=== PATIENT | female | born 1965 | race Caucasian/White ===

== ENCOUNTER 2016-05-21 14:26 | Day surgery (SDC) | payer OTHER ==
[~2016-05-21] VITALS: Ht 167.6 cm; Wt 134.8 kg
[~2016-05-21 14:26] MED LIST: ABILIFY30 MG PO; AMBIEN10 MG PO; AMBIEN5 MG PO; BACLOFEN10 MG PO; BENZTROPINE MESY2 MG PO; CEFTIN500 MG PO; CELEBREX200 MG PO; CLONAZEPAM1 MG; CYMBALTA30 MG; CYMBALTA30 MG PO; CYMBALTA60 MG PO; DICYCLOMINE HCL20 MG PO; DOCUSATE SODIU100 MG PO; DULOXETINE HCL60 MG PO; ELAVIL25 MG PO; ELIMITE 5% CREA60 GM TP; ENDOCET 5-3251 EACH; ENDOCET 5-3251 EACH PO; EVISTA60 MG PO; EXCEDRIN EXTRA1 EACH PO; FERROUS SULFAT325 MG PO; FOLIC ACID1 MG PO; FUROSEMIDE40 MG; GABAPENTIN400 MG; GABAPENTIN400 MG PO; IBUPROFEN800 MG PO; IRON325 MG PO; KLONOPIN0.5 M1 PO; KLONOPIN1 MG PO; LASIX40 MG PO; LATUDA120 MG PO; LATUDA60 MG PO; LATUDA80 MG PO; LIDODERM 5% P1 PATCH; LISINOPRIL10 MG PO; LODINE400 MG; LODINE400 MG PO; LOPRESSOR25 MG; LOPRESSOR25 MG PO; LOPRESSOR50 MG PO; LOVENOX40 MG/0.4 SC; MELATONIN3 MG PO; MELATONIN5 M1 PO; MELOXICAM15 MG; METOPROLOL TART25 MG PO; METOPROLOL TART50 MG PO; MINIPRESS1 MG PO; MOBIC15 MG PO; MOTRIN800 MG PO; NEURONTIN100 MG PO; NEURONTIN300 MG PO; NEURONTIN400 MG PO; NORCO 5/3251 TABLET PO; OXYCODONE HCL10 MG PO; OXYCODONE HCL5 MG PO; PERCOCET 10/1 TABLET PO; PERCOCET 5/31 TABLET PO; PERPHEN-AMITRI1 EAC1 PO; PERPHEN-AMITRI1 EAC3 PO; PREDNISONE10 MG PO; PREDNISONE20 MG PO; PRINIVIL10 MG PO; PROVENTIL HFA6.7 GM IH; RISPERDAL1 MG PO; SENNA-TIME S T1 EACH PO; TERCONAZOLE 0.8% CRE; TIZANIDINE HCL4 MG; TRAMADOL HCL50 MG; TRAMADOL HCL50 MG PO; ULTRAM50 MG PO; VITAMIN B-12250 MCG PO; VITAMIN B-12500 MC2 PO; VITAMIN B12-FO1 EACH PO; ZANAFLEX4 M1 PO; ZOFRAN4 MG PO; ZOLPIDEM TARTRA10 MG
== END 2016-05-21 16:53 | disposition home or self-care (01) ==
LOC: PAIN 14:26 → SDC 15:00 → PAIN 16:53
DX: M47.816 Spondylosis without myelopathy or radiculopathy, lumbar region (principal); M54.5 Low back pain; F41.9 Anxiety disorder, unspecified; G89.4 Chronic pain syndrome; F10.21 Alcohol dependence, in remission; I10 Essential (primary) hypertension; F31.9 Bipolar disorder, unspecified; E66.01 Morbid (severe) obesity due to excess calories; Z68.42 Body mass index [BMI] 45.0-49.9, adult; F20.9 Schizophrenia, unspecified; Z96.653 Presence of artificial knee joint, bilateral; Z84.89 Family history of other specified conditions; Z80.3 Family history of malignant neoplasm of breast; Z80.41 Family history of malignant neoplasm of ovary; Z82.0 Family history of epilepsy and other diseases of the nervous system; Z83.49 Family history of other endocrine, nutritional and metabolic diseases; Z82.49 Family history of ischemic heart disease and other diseases of the circulatory system; Z83.3 Family history of diabetes mellitus
CPT/HCPCS: J1030; J3010; S0020

== ENCOUNTER 2016-07-07 21:06 | Emergency (ER) | payer OTHER ==
[~2016-07-07] VITALS: Ht 167.6 cm; Wt 124.6 kg
[2016-07-07 23:09] LABS: INFLUENZA A VIRAL ANTIGEN NEGATIVE; INFLUENZA B VIRAL ANTIGEN NEGATIVE
[2016-07-07] MEDS ORDERED: MEDROL DOSEPAK4 MG PO (23:16)
[2016-07-07] MEDS ORDERED: VENTOLIN HFA18 GM IH (23:16)
[2016-07-07 23:35] VITALS: BP 128/71
== END 2016-07-07 23:37 | disposition home or self-care (01) ==
LOC: EME 21:06
PROVIDERS: Physician Assistant
DX: J40 Bronchitis, not specified as acute or chronic (principal); J98.01 Acute bronchospasm
CPT/HCPCS: 71020; 87502; 94640; 99281; 99284; J7512

== ENCOUNTER 2016-07-17 07:31 | Day surgery (SDC) | payer OTHER ==
[~2016-07-17] VITALS: Ht 168.9 cm; Wt 123.8 kg
[~2016-07-17 07:31] MED LIST changes: +MEDROL DOSEPAK4 MG PO; +VENTOLIN HFA18 GM IH
== END 2016-07-17 10:10 | disposition home or self-care (01) ==
LOC: PAIN 07:31 → SDC 08:45 → CATH 09:15 → PAIN 10:10
PROC: 015B3ZZ Destruction of Lumbar Nerve, Percutaneous Approach (ICD-10-PCS; principal; 2016-07-17)
DX: M47.816 Spondylosis without myelopathy or radiculopathy, lumbar region (principal); F41.9 Anxiety disorder, unspecified; G89.4 Chronic pain syndrome; M51.36 Other intervertebral disc degeneration, lumbar region; M47.892 Other spondylosis, cervical region; F31.9 Bipolar disorder, unspecified; F20.9 Schizophrenia, unspecified; Z96.653 Presence of artificial knee joint, bilateral; F10.21 Alcohol dependence, in remission; I10 Essential (primary) hypertension; E66.01 Morbid (severe) obesity due to excess calories; Z68.41 Body mass index [BMI] 40.0-44.9, adult; R73.03 Prediabetes; Z88.6 Allergy status to analgesic agent
CPT/HCPCS: J1030; J2250; J3010; S0020

== ENCOUNTER 2016-10-15 07:15 | Day surgery (SDC) | payer OTHER ==
[~2016-10-15] VITALS: Ht 168.9 cm; Wt 124.2 kg
[2016-10-15] MEDS ORDERED: VITAMIN D2000 UNI1 PO (07:31)
== END 2016-10-15 09:18 | disposition home or self-care (01) ==
LOC: PAIN 07:15 → SDC 08:00 → PAIN 08:00
DX: M46.1 Sacroiliitis, not elsewhere classified (principal); G89.4 Chronic pain syndrome; M53.3 Sacrococcygeal disorders, not elsewhere classified; M47.816 Spondylosis without myelopathy or radiculopathy, lumbar region; M51.36 Other intervertebral disc degeneration, lumbar region; M47.892 Other spondylosis, cervical region; M54.9 Dorsalgia, unspecified; F10.21 Alcohol dependence, in remission; I10 Essential (primary) hypertension; F31.9 Bipolar disorder, unspecified; Z79.891 Long term (current) use of opiate analgesic
CPT/HCPCS: J1030; J2250; J3010; S0020

== ENCOUNTER 2017-05-11 07:15 | Day surgery (SDC) | payer OTHER ==
[~2017-05-11] VITALS: Ht 168.9 cm; Wt 118.4 kg
[~2017-05-11 07:15] MED LIST changes: +VITAMIN D2000 UNI1 PO
== END 2017-05-11 08:50 | disposition home or self-care (01) ==
LOC: PAIN 07:15 → SDC 08:00 → PAIN 08:50
PROC: 3E0T3TZ Introduction of Destructive Agent into Peripheral Nerves and Plexi, Percutaneous Approach (ICD-10-PCS; principal; 2017-05-11)
PROC: BR161ZZ Fluoroscopy of Lumbar Facet Joint(s) using Low Osmolar Contrast (ICD-10-PCS; principal; 2017-05-11)
DX: M47.816 Spondylosis without myelopathy or radiculopathy, lumbar region (principal); M54.5 Low back pain; G89.29 Other chronic pain; M48.061 Spinal stenosis, lumbar region without neurogenic claudication; M51.36 Other intervertebral disc degeneration, lumbar region; I10 Essential (primary) hypertension; J45.909 Unspecified asthma, uncomplicated; I25.10 Atherosclerotic heart disease of native coronary artery without angina pectoris; E66.01 Morbid (severe) obesity due to excess calories; Z68.41 Body mass index [BMI] 40.0-44.9, adult; E78.00 Pure hypercholesterolemia, unspecified; R73.03 Prediabetes; F10.21 Alcohol dependence, in remission; Z79.891 Long term (current) use of opiate analgesic
CPT/HCPCS: J1030; J2250; J3010; S0020

== ENCOUNTER 2017-05-17 08:40 | Day surgery (SDC) | payer OTHER ==
[~2017-05-17] VITALS: Ht 167.6 cm; Wt 120.2 kg
[2017-05-17] MEDS ORDERED: KLONOPIN0.5 M1 PO (10:37)
== END 2017-05-17 11:38 | disposition home or self-care (01) ==
LOC: PAIN 08:40 → SDC 10:00 → PAIN 11:38
DX: M47.816 Spondylosis without myelopathy or radiculopathy, lumbar region (principal); M54.5 Low back pain; G89.29 Other chronic pain; M51.36 Other intervertebral disc degeneration, lumbar region; I10 Essential (primary) hypertension; E78.00 Pure hypercholesterolemia, unspecified; R73.03 Prediabetes; F10.21 Alcohol dependence, in remission; I25.10 Atherosclerotic heart disease of native coronary artery without angina pectoris; E66.01 Morbid (severe) obesity due to excess calories; Z68.41 Body mass index [BMI] 40.0-44.9, adult; Z79.891 Long term (current) use of opiate analgesic
CPT/HCPCS: 93005; J1030; J2250; J3010; S0020

== ENCOUNTER 2017-08-02 12:54 | Day surgery (SDC) | payer OTHER ==
[~2017-08-02] VITALS: Ht 168.9 cm; Wt 117.9 kg
== END 2017-08-02 15:25 | disposition home or self-care (01) ==
LOC: PAIN 12:54 → SDC 13:45 → PAIN 13:45
DX: M46.1 Sacroiliitis, not elsewhere classified (principal); M53.3 Sacrococcygeal disorders, not elsewhere classified; G89.4 Chronic pain syndrome; M47.816 Spondylosis without myelopathy or radiculopathy, lumbar region; I10 Essential (primary) hypertension; F31.9 Bipolar disorder, unspecified; F20.9 Schizophrenia, unspecified; Z96.653 Presence of artificial knee joint, bilateral; F10.21 Alcohol dependence, in remission; I25.10 Atherosclerotic heart disease of native coronary artery without angina pectoris
CPT/HCPCS: J1030; J2250; S0020

== ENCOUNTER 2017-10-14 07:13 | Day surgery (SDC) | payer OTHER ==
[~2017-10-14] VITALS: Ht 168.9 cm; Wt 122.5 kg
[~2017-10-14 07:13] MED LIST changes: +COGENTIN0.5 MG PO; +PLAVIX75 MG PO; +PRAVACHOL10 MG PO
== END 2017-10-14 08:55 | disposition home or self-care (01) ==
LOC: PAIN 07:13
DX: M47.812 Spondylosis without myelopathy or radiculopathy, cervical region (principal); M47.816 Spondylosis without myelopathy or radiculopathy, lumbar region; M48.061 Spinal stenosis, lumbar region without neurogenic claudication; F10.21 Alcohol dependence, in remission; I10 Essential (primary) hypertension; I25.10 Atherosclerotic heart disease of native coronary artery without angina pectoris; E78.00 Pure hypercholesterolemia, unspecified; J45.909 Unspecified asthma, uncomplicated; E66.01 Morbid (severe) obesity due to excess calories; Z68.41 Body mass index [BMI] 40.0-44.9, adult; Z79.02 Long term (current) use of antithrombotics/antiplatelets
CPT/HCPCS: J1030; J2250; S0020

== ENCOUNTER 2017-10-21 06:47 | Day surgery (SDC) | payer OTHER ==
[~2017-10-21] VITALS: Ht 167.6 cm; Wt 122.0 kg
== END 2017-10-21 08:57 | disposition home or self-care (01) ==
LOC: PAIN 06:47 → SDC 08:00 → PAIN 08:00
DX: M47.812 Spondylosis without myelopathy or radiculopathy, cervical region (principal); G89.4 Chronic pain syndrome; M47.816 Spondylosis without myelopathy or radiculopathy, lumbar region; M99.83 Other biomechanical lesions of lumbar region; F31.9 Bipolar disorder, unspecified; F20.9 Schizophrenia, unspecified; Z96.651 Presence of right artificial knee joint
CPT/HCPCS: J1030; J2250; S0020

== ENCOUNTER 2017-11-15 07:16 | Day surgery (SDC) | payer OTHER ==
[~2017-11-15] VITALS: Ht 167.6 cm; Wt 121.6 kg
== END 2017-11-15 09:14 | disposition home or self-care (01) ==
LOC: PAIN 07:16
PROC: 3E0U33Z Introduction of Anti-inflammatory into Joints, Percutaneous Approach (ICD-10-PCS; principal; 2017-11-15)
PROC: 3E0U3BZ Introduction of Anesthetic Agent into Joints, Percutaneous Approach (ICD-10-PCS; principal; 2017-11-15)
DX: M46.1 Sacroiliitis, not elsewhere classified (principal); G89.4 Chronic pain syndrome; M47.812 Spondylosis without myelopathy or radiculopathy, cervical region; M47.816 Spondylosis without myelopathy or radiculopathy, lumbar region; M99.83 Other biomechanical lesions of lumbar region; M51.36 Other intervertebral disc degeneration, lumbar region; Z79.02 Long term (current) use of antithrombotics/antiplatelets; Z88.6 Allergy status to analgesic agent
CPT/HCPCS: J1030; J1100; J2250; S0020

== ENCOUNTER 2017-11-30 07:33 | Day surgery (SDC) | payer OTHER ==
[~2017-11-30] VITALS: Ht 168.9 cm; Wt 120.2 kg
[~2017-11-30 07:33] MED LIST changes: +VITAMIN B-121000 MCG PO; -VITAMIN B-12500 MC2 PO
== END 2017-11-30 10:25 | disposition home or self-care (01) ==
LOC: PAIN 07:33 → SDC 09:15 → PAIN 09:15
DX: M47.812 Spondylosis without myelopathy or radiculopathy, cervical region (principal); M51.36 Other intervertebral disc degeneration, lumbar region; M79.2 Neuralgia and neuritis, unspecified; G89.29 Other chronic pain; F31.9 Bipolar disorder, unspecified; I10 Essential (primary) hypertension; I25.10 Atherosclerotic heart disease of native coronary artery without angina pectoris; E78.00 Pure hypercholesterolemia, unspecified; E66.01 Morbid (severe) obesity due to excess calories; Z68.41 Body mass index [BMI] 40.0-44.9, adult; Z79.02 Long term (current) use of antithrombotics/antiplatelets; Z79.891 Long term (current) use of opiate analgesic; F10.21 Alcohol dependence, in remission
CPT/HCPCS: J1030; J2250; J3010; S0020